=== PATIENT | female | born 1950 | race Caucasian/White ===

== ENCOUNTER 2022-07-28 18:26 | Outpatient (RCR) | payer MEDICARE, SELFPAY | END 2022-08-21 23:59 | disposition home or self-care (01) | LOC: MM 18:26 | PROVIDERS: PCP Internal Medicine; Visit Provider Internal Medicine | DX: Z51.81 Encounter for therapeutic drug level monitoring (principal); Z79.01 Long term (current) use of anticoagulants; I48.91 Unspecified atrial fibrillation | CPT/HCPCS: 85610; G0463 ==

== ENCOUNTER 2022-08-27 09:40 | Outpatient (RCR) | payer MEDICARE, SELFPAY | END 2022-09-21 17:06 | disposition home or self-care (01) | LOC: MM 09:40 | PROVIDERS: PCP Internal Medicine; Visit Provider Internal Medicine | DX: Z51.81 Encounter for therapeutic drug level monitoring (principal); Z79.01 Long term (current) use of anticoagulants; I48.91 Unspecified atrial fibrillation | CPT/HCPCS: 85610; G0463 ==

== ENCOUNTER 2022-09-22 09:34 | Outpatient (RCR) | payer MEDICARE, SELFPAY | END 2022-10-22 17:40 | disposition home or self-care (01) | LOC: MM 09:34 | PROVIDERS: PCP Internal Medicine; Visit Provider Internal Medicine | DX: Z51.81 Encounter for therapeutic drug level monitoring (principal); Z79.01 Long term (current) use of anticoagulants; I48.91 Unspecified atrial fibrillation | CPT/HCPCS: 85610; G0463 ==

== ENCOUNTER 2022-10-23 10:34 | Outpatient (RCR) | payer MEDICARE, SELFPAY | END 2022-11-20 16:58 | disposition home or self-care (01) | LOC: MM 10:34 | PROVIDERS: PCP Internal Medicine; Visit Provider Internal Medicine | DX: Z51.81 Encounter for therapeutic drug level monitoring (principal); Z79.01 Long term (current) use of anticoagulants; I48.91 Unspecified atrial fibrillation | CPT/HCPCS: 85610; G0463 ==

== ENCOUNTER 2022-11-23 02:55 | Outpatient (RCR) | payer MEDICARE, SELFPAY | END 2022-12-22 17:45 | disposition home or self-care (01) | LOC: MM 02:55 | PROVIDERS: PCP Internal Medicine; Visit Provider Internal Medicine | DX: Z51.81 Encounter for therapeutic drug level monitoring (principal); Z79.01 Long term (current) use of anticoagulants; I48.91 Unspecified atrial fibrillation | CPT/HCPCS: 85610; G0463 ==

== ENCOUNTER 2022-12-23 00:25 | Outpatient (RCR) | payer MEDICARE, SELFPAY | END 2023-01-21 16:28 | disposition home or self-care (01) | LOC: MM 00:25 | PROVIDERS: PCP Internal Medicine; Visit Provider Internal Medicine | DX: Z51.81 Encounter for therapeutic drug level monitoring (principal); Z79.01 Long term (current) use of anticoagulants; I48.91 Unspecified atrial fibrillation | CPT/HCPCS: 85610; G0463 ==

== ENCOUNTER 2023-01-22 09:48 | Outpatient (RCR) | payer MEDICARE, SELFPAY | END 2023-02-19 15:34 | disposition home or self-care (01) | LOC: MM 09:48 | PROVIDERS: PCP Internal Medicine; Visit Provider Internal Medicine | DX: Z51.81 Encounter for therapeutic drug level monitoring (principal); Z79.01 Long term (current) use of anticoagulants; I48.91 Unspecified atrial fibrillation ==

== ENCOUNTER 2023-02-22 02:02 | Outpatient (RCR) | payer MEDICARE, SELFPAY | END 2023-03-24 17:22 | disposition home or self-care (01) | LOC: MM 02:02 | PROVIDERS: PCP Internal Medicine; Visit Provider Internal Medicine | DX: Z51.81 Encounter for therapeutic drug level monitoring (principal); Z79.01 Long term (current) use of anticoagulants; I48.91 Unspecified atrial fibrillation | CPT/HCPCS: 85610; G0463 ==

== ENCOUNTER 2023-03-25 01:59 | Outpatient (RCR) | payer MEDICARE, SELFPAY | END 2023-04-22 17:32 | disposition home or self-care (01) | LOC: MM 01:59 | PROVIDERS: PCP Internal Medicine; Visit Provider Internal Medicine | DX: Z51.81 Encounter for therapeutic drug level monitoring (principal); Z79.01 Long term (current) use of anticoagulants; I48.91 Unspecified atrial fibrillation | CPT/HCPCS: 85610; G0463 ==

== ENCOUNTER 2023-04-23 01:23 | Outpatient (RCR) | payer MEDICARE, SELFPAY | END 2023-05-21 13:55 | disposition home or self-care (01) | LOC: MM 01:23 | PROVIDERS: PCP Internal Medicine; Visit Provider Internal Medicine | DX: Z51.81 Encounter for therapeutic drug level monitoring (principal); Z79.01 Long term (current) use of anticoagulants; I48.91 Unspecified atrial fibrillation | CPT/HCPCS: 85610; G0463 ==

== ENCOUNTER 2023-05-24 00:13 | Outpatient (RCR) | payer MEDICARE, SELFPAY | END 2023-06-22 17:55 | disposition home or self-care (01) | LOC: MM 00:13 | PROVIDERS: PCP Internal Medicine; Visit Provider Internal Medicine | DX: Z51.81 Encounter for therapeutic drug level monitoring (principal); Z79.01 Long term (current) use of anticoagulants; I48.91 Unspecified atrial fibrillation ==

== ENCOUNTER 2023-06-23 04:36 | Outpatient (RCR) | payer MEDICARE, SELFPAY | END 2023-07-23 11:53 | disposition home or self-care (01) | LOC: MM 04:36 | PROVIDERS: PCP Internal Medicine; Visit Provider Internal Medicine | DX: Z51.81 Encounter for therapeutic drug level monitoring (principal); Z79.01 Long term (current) use of anticoagulants; Z95.2 Presence of prosthetic heart valve | CPT/HCPCS: 85610; G0463 ==

== ENCOUNTER 2023-07-26 03:29 | Outpatient (RCR) | payer MEDICARE, SELFPAY | END 2023-08-20 11:06 | disposition home or self-care (01) | LOC: MM 03:29 | PROVIDERS: PCP Internal Medicine; Visit Provider Internal Medicine | DX: Z51.81 Encounter for therapeutic drug level monitoring (principal); Z79.01 Long term (current) use of anticoagulants; I48.91 Unspecified atrial fibrillation | CPT/HCPCS: 85610; G0463 ==

== ENCOUNTER 2023-08-23 00:27 | Outpatient (RCR) | payer MEDICARE, SELFPAY | END 2023-09-22 16:51 | disposition home or self-care (01) | LOC: MM 00:27 | PROVIDERS: PCP Internal Medicine; Visit Provider Internal Medicine | DX: Z51.81 Encounter for therapeutic drug level monitoring (principal); Z79.01 Long term (current) use of anticoagulants; I48.91 Unspecified atrial fibrillation | CPT/HCPCS: 85610; G0463 ==

== ENCOUNTER 2023-09-23 00:26 | Outpatient (RCR) | payer MEDICARE, SELFPAY | END 2023-10-22 10:06 | disposition home or self-care (01) | LOC: MM 00:26 | PROVIDERS: PCP Internal Medicine; Visit Provider Internal Medicine | DX: Z51.81 Encounter for therapeutic drug level monitoring (principal); Z79.01 Long term (current) use of anticoagulants; I48.91 Unspecified atrial fibrillation | CPT/HCPCS: 85610; G0463 ==

== ENCOUNTER 2023-10-25 01:37 | Outpatient (RCR) | payer MEDICARE, SELFPAY | END 2023-11-22 23:57 | disposition home or self-care (01) | LOC: MM 01:37 | PROVIDERS: PCP Internal Medicine; Visit Provider Internal Medicine | DX: Z51.81 Encounter for therapeutic drug level monitoring (principal); Z79.01 Long term (current) use of anticoagulants; I48.91 Unspecified atrial fibrillation | CPT/HCPCS: 85610; G0463 ==

== ENCOUNTER 2023-11-23 02:37 | Outpatient (RCR) | payer MEDICARE, SELFPAY | END 2023-12-23 23:33 | disposition home or self-care (01) | LOC: MM 02:37 | PROVIDERS: PCP Internal Medicine; Visit Provider Internal Medicine | DX: Z51.81 Encounter for therapeutic drug level monitoring (principal); Z79.01 Long term (current) use of anticoagulants; I48.91 Unspecified atrial fibrillation ==

== ENCOUNTER 2023-12-24 13:00 | Outpatient (RCR) | payer MEDICARE, SELFPAY | END 2024-01-22 23:59 | disposition home or self-care (01) | LOC: MM 13:00 | PROVIDERS: PCP Internal Medicine; Visit Provider Internal Medicine | DX: Z51.81 Encounter for therapeutic drug level monitoring (principal); Z79.01 Long term (current) use of anticoagulants; I48.91 Unspecified atrial fibrillation | CPT/HCPCS: 85610; G0463 ==

== ENCOUNTER 2024-01-24 05:20 | Outpatient (RCR) | payer MEDICARE, SELFPAY | END 2024-02-22 09:18 | disposition home or self-care (01) | LOC: MM 05:20 | PROVIDERS: PCP Internal Medicine; Visit Provider Internal Medicine | DX: Z51.81 Encounter for therapeutic drug level monitoring (principal); Z79.01 Long term (current) use of anticoagulants; I48.91 Unspecified atrial fibrillation | CPT/HCPCS: 85610; G0463 ==

== ENCOUNTER 2024-02-24 01:10 | Outpatient (RCR) | payer MEDICARE, SELFPAY | END 2024-03-24 14:36 | disposition home or self-care (01) | LOC: MM 01:10 | PROVIDERS: PCP Internal Medicine; Visit Provider Internal Medicine | DX: Z51.81 Encounter for therapeutic drug level monitoring (principal); Z79.01 Long term (current) use of anticoagulants; I48.91 Unspecified atrial fibrillation | CPT/HCPCS: 85610; G0463 ==

== ENCOUNTER 2024-03-27 00:40 | Outpatient (RCR) | payer MEDICARE, SELFPAY | END 2024-04-21 10:25 | disposition home or self-care (01) | LOC: MM 00:40 | PROVIDERS: PCP Internal Medicine; Visit Provider Internal Medicine | DX: Z51.81 Encounter for therapeutic drug level monitoring (principal); Z79.01 Long term (current) use of anticoagulants; I48.91 Unspecified atrial fibrillation | CPT/HCPCS: 85610; G0463 ==

== ENCOUNTER 2024-04-23 07:17 | Outpatient (RCR) | payer MEDICARE, SELFPAY | END 2024-05-19 13:46 | disposition home or self-care (01) | LOC: MM 07:17 | PROVIDERS: PCP Internal Medicine; Visit Provider Internal Medicine | DX: Z51.81 Encounter for therapeutic drug level monitoring (principal); Z79.01 Long term (current) use of anticoagulants; I48.91 Unspecified atrial fibrillation | CPT/HCPCS: 85610; G0463 ==

== ENCOUNTER 2024-05-23 06:07 | Outpatient (RCR) | payer MEDICARE, SELFPAY | END 2024-06-21 14:44 | disposition home or self-care (01) | LOC: MM 06:07 | PROVIDERS: PCP Internal Medicine; Visit Provider Internal Medicine | DX: Z51.81 Encounter for therapeutic drug level monitoring (principal); Z79.01 Long term (current) use of anticoagulants; I48.91 Unspecified atrial fibrillation | CPT/HCPCS: 85610; G0463 ==

== ENCOUNTER 2024-06-22 04:47 | Outpatient (RCR) | payer MEDICARE, SELFPAY | END 2024-07-21 15:05 | disposition home or self-care (01) | LOC: MM 04:47 | PROVIDERS: PCP Internal Medicine; Visit Provider Internal Medicine | DX: Z51.81 Encounter for therapeutic drug level monitoring (principal); Z79.01 Long term (current) use of anticoagulants; I48.91 Unspecified atrial fibrillation | CPT/HCPCS: 85610; G0463 ==

== ENCOUNTER 2024-07-23 07:14 | Outpatient (RCR) | payer MEDICARE, SELFPAY | END 2024-08-17 14:20 | disposition home or self-care (01) | LOC: MM 07:14 | PROVIDERS: PCP Internal Medicine; Visit Provider Internal Medicine | DX: Z51.81 Encounter for therapeutic drug level monitoring (principal); Z79.01 Long term (current) use of anticoagulants; I48.91 Unspecified atrial fibrillation ==

== ENCOUNTER 2024-08-22 02:32 | Outpatient (RCR) | payer MEDICARE, SELFPAY | END 2024-09-21 16:31 | disposition home or self-care (01) | LOC: MM 02:32 | PROVIDERS: PCP Internal Medicine; Visit Provider Internal Medicine | DX: Z51.81 Encounter for therapeutic drug level monitoring (principal); Z79.01 Long term (current) use of anticoagulants; I48.91 Unspecified atrial fibrillation ==

== ENCOUNTER 2024-09-22 00:21 | Outpatient (RCR) | payer MEDICARE, SELFPAY | END 2024-10-19 12:52 | disposition home or self-care (01) | LOC: MM 00:21 | PROVIDERS: PCP Internal Medicine; Visit Provider Internal Medicine | DX: Z51.81 Encounter for therapeutic drug level monitoring (principal); Z79.01 Long term (current) use of anticoagulants; Z95.2 Presence of prosthetic heart valve | CPT/HCPCS: 85610; G0463 ==

== ENCOUNTER 2024-10-23 02:03 | Outpatient (RCR) | payer MEDICARE, SELFPAY | END 2024-11-21 15:15 | disposition home or self-care (01) | LOC: MM 02:03 | PROVIDERS: PCP Internal Medicine; Visit Provider Internal Medicine | DX: Z51.81 Encounter for therapeutic drug level monitoring (principal); Z79.01 Long term (current) use of anticoagulants; Z95.2 Presence of prosthetic heart valve | CPT/HCPCS: 85610; G0463 ==

== ENCOUNTER 2024-11-22 04:36 | Outpatient (RCR) | payer MEDICARE, SELFPAY | END 2024-12-22 23:59 | disposition home or self-care (01) | LOC: MM 04:36 | PROVIDERS: PCP Internal Medicine; Visit Provider Internal Medicine | DX: Z51.81 Encounter for therapeutic drug level monitoring (principal); Z79.01 Long term (current) use of anticoagulants; Z95.2 Presence of prosthetic heart valve | CPT/HCPCS: 85610; G0463 ==

== ENCOUNTER 2024-12-23 11:37 | Outpatient (RCR) | payer MEDICARE, SELFPAY | END 2025-01-21 23:59 | disposition home or self-care (01) | LOC: MM 11:37 | PROVIDERS: PCP Internal Medicine; Visit Provider Internal Medicine | DX: Z51.81 Encounter for therapeutic drug level monitoring (principal); Z79.01 Long term (current) use of anticoagulants; I48.91 Unspecified atrial fibrillation | CPT/HCPCS: 85610; G0463 ==

== ENCOUNTER 2025-01-22 08:01 | Outpatient (RCR) | payer MEDICARE, SELFPAY | END 2025-02-21 13:24 | disposition home or self-care (01) | LOC: MM 08:01 | PROVIDERS: PCP Internal Medicine; Visit Provider Internal Medicine | DX: Z51.81 Encounter for therapeutic drug level monitoring (principal); Z79.01 Long term (current) use of anticoagulants; I48.91 Unspecified atrial fibrillation | CPT/HCPCS: 85610; G0463 ==